=== PATIENT | male | born 1960 | race Caucasian/White ===

== ENCOUNTER 2018-01-12 07:52 | Inpatient (IN) | payer OTHER ==
[~2018-01-12] VITALS: Ht 177.8 cm; Wt 65.6 kg
[2018-01-12] MEDS ORDERED: SODIUM CHLORIDE 0.9% 1,000ML IVBOLUS ONE (08:30)
[2018-01-12] MEDS ORDERED: SODIUM CHLORIDE FLUSH 10ML SYR IVF ONE (08:30)
[2018-01-12] MEDS ORDERED: PIPERACILLIN/TAZO/PMX 3.375GM 50 ML ONE (08:46)
[2018-01-12 08:51] LABS: MEAN CORPUSCULAR HEMOGLOBIN 30.7 pg (27.5-34.5); MEAN CORPUSCULAR HGB CONC 33.5 g/dL (33.2-36.2); MEAN CORPUSCULAR VOLUME 91.7 fL (81-97); MEAN PLATELET VOLUME 7.6 fL (7.4-10.4); PLATELET COUNT 383 x10^3/uL (130-400); RED BLOOD COUNT 4.07 x10^6/uL (4.38-5.82); RED CELL DISTRIBUTION WIDTH 13.9 % (9.4-14.8)
[2018-01-12] MEDS ORDERED: VANCOMYCIN 1,300 MG in SODIUM CHLORIDE 0.9% 250 ML IV ONE (09:00)
[2018-01-12] MEDS ORDERED: VANCOMYCIN PER PHARMACY MC ONE (09:00)
[2018-01-12] MEDS ORDERED: PIPERACILLIN/TAZO/PMX 3.375GM 50 ML IVPB ONE (09:00)
[2018-01-12] MEDS ORDERED: CLINDAMYCIN PMX 900MG/50ML 50 ML IV SCH (09:00)
[2018-01-12 09:02] LABS: ALANINE AMINOTRANSFERASE 27 U/L (12-78); ALBUMIN 2.2 g/dL (3.4-5.0); ANION GAP 7 mmol/L (5-15); CALCIUM 8.7 mg/dL (8.5-10.1); CHLORIDE 103 mmol/L (98-107); CREATININE 0.72 mg/dL (0.7-1.3)
[2018-01-12 09:04] LABS: ALKALINE PHOSPHATASE 108 U/L (45-117); TOTAL PROTEIN 8.6 g/dL (6.4-8.2)
[2018-01-12 09:05] LABS: BASOPHILS # (AUTO) 0.09 x10^3/uL (0-0.1); BASOPHILS % (AUTO) 0 % (0-1); EOSINOPHILS # (AUTO) 0.03 x10^3/uL (0-0.4); EOSINOPHILS % (AUTO) 0 % (1-7); LYMPHOCYTES # (AUTO) 1.62 x10^3/uL (1-3.4); LYMPHOCYTES % (AUTO) 8 % (22-44); MD SCAN; MONOCYTES # (AUTO) 1.43 x10^3/uL (0.2-0.8); MONOCYTES % (AUTO) 7 % (2-9); NEUTROPHILS # (AUTO) 17.37 x10^3/uL (1.8-6.8); NEUTROPHILS % (AUTO) 85 % (42-75)
[2018-01-12] MEDS ORDERED: CLINDAMYCIN PMX 900MG/50ML 50 ML ONE (09:13)
[2018-01-12] MEDS: SODIUM CHLORIDE 0.9% 1,000 ML IV SCH (12:12)
[2018-01-12] MEDS ORDERED: ENALAPRILAT 1.25 MG/ML, 2ML IVPush PRN (12:30)
[2018-01-12] MEDS ORDERED: ONDANSETRON 2MG/ML, 2ML IVPush PRN (12:30)
[2018-01-12] MEDS ORDERED: ONDANSETRON ODT 4 MG PO PRN (12:30)
[2018-01-12] MEDS ORDERED: LABETALOL 5MG/ML, 20ML IVPush PRN (12:30)
[2018-01-12] MEDS ORDERED: BISACODYL 10 MG SUPP PR PRN (12:30)
[2018-01-12] MEDS: ENOXAPARIN 40 MG/0.4 ML SQ SCH (13:00)
[2018-01-12] MEDS: ACETAMINOPHEN 325 MG TABLET PO PRN ×2 (13:10→18:17)
[2018-01-12 13:13] VITALS: BP 123/79
[2018-01-12] MEDS ORDERED: VANCOMYCIN PER PHARMACY MC PRN (13:30)
[2018-01-12 14:00] VITALS: BP 123/79
[2018-01-12] MEDS ORDERED: PHARMACOKINETIC MONITORING MC PRN (14:00)
[2018-01-12] MEDS ORDERED: PHARMACOKINETIC CONSULTATION MC ONE (14:00)
[2018-01-12 14:59] LABS: HCT (SEDRATE) 34.4 % (39.2-51.8)
[2018-01-12] MEDS ORDERED: SODIUM CHLORIDE 0.9% 500 ML IV ONE (15:00)
[2018-01-12] MEDS ORDERED: ALBUTEROL/IPRATROPIUM 2.5MG/0.5MG, 3 ML ONE (15:47)
[2018-01-12] MEDS: PIPERACILLIN/TAZO/PMX 3.375GM 50 ML IV SCH (16:36)
[2018-01-12] MEDS: CLINDAMYCIN PMX 900MG/50ML 50 ML IV SCH (18:17)
[2018-01-12 20:00] VITALS: BP 111/78
[2018-01-12] MEDS: ALBUTEROL/IPRATROPIUM 2.5MG/0.5MG, 3 ML NPPB SCH (20:00)
[2018-01-12] MEDS ORDERED: TRAZODONE 50MG TABLET PO PRN (21:00)
[2018-01-12] MEDS ORDERED: DOCUSATE 100 MG CAPSULE PO PRN (21:00)
[2018-01-12] MEDS: VANCOMYCIN 1,300 MG in SODIUM CHLORIDE 0.9% 250 ML IV SCH (22:03)
[2018-01-13] MEDS: PIPERACILLIN/TAZO/PMX 3.375GM 50 ML IV SCH ×5 (00:06→20:37)
[2018-01-13 00:24] VITALS: BP 108/71
[2018-01-13 00:32] LABS: MICROSCOPIC NOT IND
[2018-01-13 00:50] LABS: CULTURE INDICATED? NO
[2018-01-13] MEDS: CLINDAMYCIN PMX 900MG/50ML 50 ML IV SCH ×3 (01:51→18:11)
[2018-01-13 05:57] LABS: BASOPHILS # (AUTO) 0.06 x10^3/uL (0-0.1); BASOPHILS % (AUTO) 0 % (0-1); EOSINOPHILS # (AUTO) 0.03 x10^3/uL (0-0.4); EOSINOPHILS % (AUTO) 0 % (1-7); LYMPHOCYTES # (AUTO) 1.86 x10^3/uL (1-3.4); LYMPHOCYTES % (AUTO) 12 % (22-44); MD NO; MEAN CORPUSCULAR HEMOGLOBIN 30.9 pg (27.5-34.5); MEAN CORPUSCULAR HGB CONC 34.1 g/dL (33.2-36.2); MEAN CORPUSCULAR VOLUME 90.9 fL (81-97); MEAN PLATELET VOLUME 7.9 fL (7.4-10.4); MONOCYTES # (AUTO) 1.32 x10^3/uL (0.2-0.8); MONOCYTES % (AUTO) 9 % (2-9); NEUTROPHILS # (AUTO) 11.71 x10^3/uL (1.8-6.8); NEUTROPHILS % (AUTO) 78 % (42-75); PLATELET COUNT 359 x10^3/uL (130-400); RED BLOOD COUNT 3.37 x10^6/uL (4.38-5.82); RED CELL DISTRIBUTION WIDTH 13.5 % (9.4-14.8)
[2018-01-13 06:05] LABS: CHLORIDE 106 mmol/L (98-107)
[2018-01-13 06:29] LABS: ALANINE AMINOTRANSFERASE 23 U/L (12-78); ALBUMIN 1.7 g/dL (3.4-5.0); ALKALINE PHOSPHATASE 106 U/L (45-117); ANION GAP 9 mmol/L (5-15); BILIRUBIN,TOTAL 1.1 mg/dL (0.2-1.0); CALCIUM 8.4 mg/dL (8.5-10.1); CREATININE 0.56 mg/dL (0.7-1.3); TOTAL PROTEIN 7.1 g/dL (6.4-8.2)
[2018-01-13 08:00] VITALS: BP 103/71
[2018-01-13] MEDS: SODIUM CHLORIDE 0.9% 1,000 ML IV SCH ×2 (08:00→18:11)
[2018-01-13] MEDS: ALBUTEROL/IPRATROPIUM 2.5MG/0.5MG, 3 ML NPPB SCH (08:08)
[2018-01-13] MEDS: SENNA/DOCUSATE TABLET PO SCH (08:24)
[2018-01-13] MEDS ORDERED: ALBUTEROL/IPRATROPIUM 2.5MG/0.5MG, 3 ML NPPB PRN (09:00)
[2018-01-13] MEDS: VANCOMYCIN 1,300 MG in SODIUM CHLORIDE 0.9% 250 ML IV SCH ×2 (11:24→22:44)
[2018-01-13] MEDS: ENOXAPARIN 40 MG/0.4 ML SQ SCH (13:00)
[2018-01-13 13:22] LABS: % IRON SATURATION 15 % (20-55); IRON LEVEL 25 mcg/dL (65-175); TOTAL IRON BINDING CAPACITY 166 mcg/dL (250-450)
[2018-01-13] MEDS ORDERED: POTASSIUM CHLORIDE 20 MEQ TAB.ER.PRT PO ONE (13:30)
[2018-01-13] MEDS: IRON SUCROSE COMPLEX 100MG/5ML IV SCH (14:11)
[2018-01-13 19:09] VITALS: BP 101/67
[2018-01-14] MEDS: PIPERACILLIN/TAZO/PMX 3.375GM 50 ML IV SCH ×4 (01:46→20:25)
[2018-01-14 01:49] VITALS: BP 104/67
[2018-01-14] MEDS: CLINDAMYCIN PMX 900MG/50ML 50 ML IV SCH ×3 (02:48→17:57)
[2018-01-14 05:07] LABS: ALANINE AMINOTRANSFERASE 19 U/L (12-78); ALBUMIN 1.8 g/dL (3.4-5.0); ANION GAP 7 mmol/L (5-15); CALCIUM 8.4 mg/dL (8.5-10.1); CHLORIDE 105 mmol/L (98-107); CREATININE 0.64 mg/dL (0.7-1.3)
[2018-01-14 05:08] LABS: MEAN CORPUSCULAR HEMOGLOBIN 30.7 pg (27.5-34.5); MEAN CORPUSCULAR HGB CONC 33.9 g/dL (33.2-36.2); MEAN CORPUSCULAR VOLUME 90.7 fL (81-97); MEAN PLATELET VOLUME 7.9 fL (7.4-10.4); PLATELET COUNT 351 x10^3/uL (130-400); RED BLOOD COUNT 3.21 x10^6/uL (4.38-5.82); RED CELL DISTRIBUTION WIDTH 13.9 % (9.4-14.8)
[2018-01-14 05:10] LABS: ALKALINE PHOSPHATASE 103 U/L (45-117); BILIRUBIN,TOTAL 0.9 mg/dL (0.2-1.0); TOTAL PROTEIN 7.5 g/dL (6.4-8.2)
[2018-01-14 05:58] LABS: BASOPHILS # (AUTO) 0.04 x10^3/uL (0-0.1); BASOPHILS % (AUTO) 0 % (0-1); EOSINOPHILS % (AUTO) 1 % (1-7); LYMPHOCYTES # (AUTO) 1.64 x10^3/uL (1-3.4); LYMPHOCYTES % (AUTO) 12 % (22-44); MD SCAN; MONOCYTES # (AUTO) 1.33 x10^3/uL (0.2-0.8); MONOCYTES % (AUTO) 10 % (2-9); NEUTROPHILS # (AUTO) 10.17 x10^3/uL (1.8-6.8); NEUTROPHILS % (AUTO) 77 % (42-75)
[2018-01-14 07:45] VITALS: BP 113/80
[2018-01-14] MEDS: IRON SUCROSE COMPLEX 100MG/5ML IV SCH (08:29)
[2018-01-14] MEDS: SENNA/DOCUSATE TABLET PO SCH (08:29)
[2018-01-14] MEDS: VANCOMYCIN 1,300 MG in SODIUM CHLORIDE 0.9% 250 ML IV SCH (12:00)
[2018-01-14] MEDS: SODIUM CHLORIDE 0.9% 1,000 ML IV SCH (12:00)
[2018-01-14] MEDS: ENOXAPARIN 40 MG/0.4 ML SQ SCH (13:00)
[2018-01-14 13:27] VITALS: BP 97/63
[2018-01-14 20:00] VITALS: BP 111/74
[2018-01-15] MEDS: VANCOMYCIN 1,300 MG in SODIUM CHLORIDE 0.9% 250 ML IV SCH (00:02)
[2018-01-15 00:28] VITALS: BP 103/67
[2018-01-15] MEDS: PIPERACILLIN/TAZO/PMX 3.375GM 50 ML IV SCH ×2 (01:43→08:00)
[2018-01-15] MEDS: CLINDAMYCIN PMX 900MG/50ML 50 ML IV SCH ×2 (02:25→10:07)
[2018-01-15] MEDS: SODIUM CHLORIDE 0.9% 1,000 ML IV SCH ×2 (04:00→16:59)
[2018-01-15 05:35] LABS: BASOPHILS # (AUTO) 0.08 x10^3/uL (0-0.1); BASOPHILS % (AUTO) 1 % (0-1); EOSINOPHILS # (AUTO) 0.16 x10^3/uL (0-0.4); EOSINOPHILS % (AUTO) 1 % (1-7); LYMPHOCYTES # (AUTO) 2.49 x10^3/uL (1-3.4); LYMPHOCYTES % (AUTO) 19 % (22-44); MD NO; MEAN CORPUSCULAR HEMOGLOBIN 30.4 pg (27.5-34.5); MEAN CORPUSCULAR HGB CONC 33.5 g/dL (33.2-36.2); MEAN CORPUSCULAR VOLUME 90.7 fL (81-97); MEAN PLATELET VOLUME 7.6 fL (7.4-10.4); MONOCYTES # (AUTO) 1.28 x10^3/uL (0.2-0.8); MONOCYTES % (AUTO) 10 % (2-9); NEUTROPHILS # (AUTO) 8.88 x10^3/uL (1.8-6.8); NEUTROPHILS % (AUTO) 69 % (42-75); PLATELET COUNT 413 x10^3/uL (130-400); RED BLOOD COUNT 3.74 x10^6/uL (4.38-5.82); RED CELL DISTRIBUTION WIDTH 13.8 % (9.4-14.8)
[2018-01-15 05:43] LABS: CHLORIDE 106 mmol/L (98-107)
[2018-01-15 05:53] LABS: ALANINE AMINOTRANSFERASE 23 U/L (12-78); ALBUMIN 1.9 g/dL (3.4-5.0); ALKALINE PHOSPHATASE 102 U/L (45-117); ANION GAP 7 mmol/L (5-15); BILIRUBIN,TOTAL 0.5 mg/dL (0.2-1.0); CALCIUM 8.5 mg/dL (8.5-10.1); CREATININE 0.73 mg/dL (0.7-1.3); TOTAL PROTEIN 7.9 g/dL (6.4-8.2)
[2018-01-15 07:59] VITALS: BP 101/66
[2018-01-15] MEDS: IRON SUCROSE COMPLEX 100MG/5ML IV SCH (08:00)
[2018-01-15] MEDS: SENNA/DOCUSATE TABLET PO SCH (08:00)
[2018-01-15] MEDS: ENOXAPARIN 40 MG/0.4 ML SQ SCH (11:52)
[2018-01-15] MEDS: ERTAPENEM 1 GM in SODIUM CHLORIDE 0.9% 50 ML IV SCH (11:52)
[2018-01-15 13:19] VITALS: BP 103/70
[2018-01-15 20:15] VITALS: BP 101/67
[2018-01-16 02:16] VITALS: BP 106/72
[2018-01-16] MEDS: SODIUM CHLORIDE 0.9% 1,000 ML IV SCH (03:21)
[2018-01-16 06:41] VITALS: BP 108/72
[2018-01-16] MEDS: IRON SUCROSE COMPLEX 100MG/5ML IV SCH (07:56)
[2018-01-16] MEDS: SENNA/DOCUSATE TABLET PO SCH (07:57)
[2018-01-16] MEDS ORDERED: LIDOCAINE-MPF 1%, 2ML ONE (08:17)
[2018-01-16] MEDS: ERTAPENEM 1 GM in SODIUM CHLORIDE 0.9% 50 ML IV SCH (11:00)
[2018-01-16] MEDS ORDERED: CEFTRIAXONE 2 GM in SODIUM CHLORIDE 0.9% 50 ML IV SCH (12:00)
[2018-01-16] MEDS: ENOXAPARIN 40 MG/0.4 ML SQ SCH (12:04)
[2018-01-16] MEDS ORDERED: SODIUM CHLORIDE 0.9% 1,000 ML IV SCH (12:12)
[2018-01-16 12:45] VITALS: BP 109/74
[2018-01-16] MEDS ORDERED: DIPHENHYDRAMINE/ZINC CRM 2%, 30GM TP PRN (14:00)
[2018-01-16 19:41] VITALS: BP 129/79
[2018-01-17 01:57] VITALS: BP 106/71
[2018-01-17 07:50] VITALS: BP 118/81
[2018-01-17] MEDS: IRON SUCROSE COMPLEX 100MG/5ML IV SCH (07:58)
[2018-01-17] MEDS: SENNA/DOCUSATE TABLET PO SCH (08:00)
[2018-01-17] MEDS ORDERED: ERTAPENEM 1 GM in SODIUM CHLORIDE 0.9% 50 ML IV SCH (11:00)
[2018-01-17] MEDS: ENOXAPARIN 40 MG/0.4 ML SQ SCH (12:28)
[2018-01-17 12:33] VITALS: BP 116/78
[2018-01-17] MEDS ORDERED: FERR324T5 PO (16:24)
== END 2018-01-17 17:16 | disposition home or self-care (01) | DRG 871 ==
LOC: ED 10:14 → EDIP 10:36 → 4WST 12:22 → DCLOUNGE 01-17 17:04
PROVIDERS: ADMIT Internal Medicine; ATTEND Internal Medicine
PROC: 02HV33Z Insertion of Infusion Device into Superior Vena Cava, Percutaneous Approach (ICD-10-PCS; principal; 2018-01-16)
PROC: B518ZZA Fluoroscopy of Superior Vena Cava, Guidance (ICD-10-PCS; 2018-01-16)
PROC: B548ZZA Ultrasonography of Superior Vena Cava, Guidance (ICD-10-PCS; 2018-01-16)
DX: A41.51 Sepsis due to Escherichia coli [E. coli] (principal); J85.0 Gangrene and necrosis of lung; J96.01 Acute respiratory failure with hypoxia; J15.9 Unspecified bacterial pneumonia; B96.20 Unspecified Escherichia coli [E. coli] as the cause of diseases classified elsewhere; D64.9 Anemia, unspecified; F12.90 Cannabis use, unspecified, uncomplicated; E87.6 Hypokalemia; F17.200 Nicotine dependence, unspecified, uncomplicated; L50.0 Allergic urticaria; T36.1X5A Adverse effect of cephalosporins and other beta-lactam antibiotics, initial encounter; Y92.89 Other specified places as the place of occurrence of the external cause; Z78.9 Other specified health status; Z87.01 Personal history of pneumonia (recurrent); Z90.2 Acquired absence of lung [part of]
CPT/HCPCS: 36415; 36569; 71046; 76937; 77001; 80053; 81003; 82607; 82746; 82784; 82787; 83540; 83550; 83605; 83735; 84100; 84145; 84443; 85025; 85651; 86140; 86480; 87015; 87040; 87070; 87077; 87081; 87116; 87186; 87205; 87206; 87806; 93005; 94640; 99285; J0696; J1335; J1756; J2543; J3370; J3490; J7620; C1751; G0475; J7030; J7040; J7050

== ENCOUNTER → 2018-02-01 | Outpatient (CLI) | payer OTHER ==
[~2018-02-01] MED LIST: FERR324T5 PO; OMNIPAQUE 350 MG/ML, 75ML BOTTLE ONE
== END | disposition home or self-care (01) ==
LOC: RAD 10:29
PROVIDERS: ATTEND Internal Medicine Infectious Disease
DX: J47.0 Bronchiectasis with acute lower respiratory infection (principal); R59.1 Generalized enlarged lymph nodes; J85.0 Gangrene and necrosis of lung
CPT/HCPCS: 71260; Q9967